=== PATIENT | female | born 1995 | race Hispanic/Latino ===

== ENCOUNTER 2019-04-12 09:37 | Emergency (ER) | payer OTHER ==
[~2019-04-12] VITALS: Ht 157.5 cm; Wt 81.6 kg
--- OUTSIDE RECORDS SUMMARY | 2019-04-12 09:40 | XMS REPORT | Continuity of Care Document ---
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 unit/0.1 mL intradermal injection solution Inject 0.1 mL by intradermal route. Active [facility] Allergies, Adverse Reactions, Alerts No Known Medication Allergies Immunizations Immunization Date Given Site Status Last Updated Comments Source influenza, injectable, quadrivalent, preservative free 06/09/2018 completed [facility] Results No Data Provided for This Section Pathology Reports No Data Provided for This Section Diagnostic Reports No Data Provided for This Section Consultation Notes No Data Provided for This Section Discharge Summaries No Data Provided for This Section History and Physicals No Data Provided for This Section Vital Signs Vital Sign Value Date Comments Source Diastolic (mm Hg) 70 06/09/2018 [facility] Height 63 06/09/2018 [facility] Systolic (mm Hg) 110 06/09/2018 [facility] Weight 184 06/09/2018 [facility] Encounters Location Location Details Encounter Type Encounter Number Reason For Visit Attending Provider ADM Date DC Date Status Source [place] - [facility] - [id number] GamboaC[facility] [address] [facility] [place] [address], Ph. [id number] Anna Marie Hernandez 06/09/2018 [facility] Procedures No Data Provided for This Section Assessment and Plan No Data Provided for This Section Plan of Care No Data Provided for This Section Social History No Data Provided for This Section Family History No Data Provided for This Section Advance Directives No Data Provided for This Section Functional Status No Data Provided for This Section
--- OUTSIDE RECORDS SUMMARY | 2019-04-12 09:41 | XMS REPORT | Encounter Summary ---
Author Organization Unknown Address [address] [place] [id number] Phone [phone] Reason for Visit Flu Immunization; Screening - TB Instructions 1. Influenza vaccine needed Flulaval Quad [id number] (PF) 60 mcg (15 mcg x 4)/0.5 mL IM syringe 2. Tuberculosis screening Tubersol 5 tub. unit/0.1 mL intradermal injection solution PPD (purified protein derivative), skin test Discussion Note Discussed with patient side effects , risks and complications of vaccine with VIS given. May take Tylenol for any discomfort. Report any redness, swelling at location site or fever RTC in 48 to 72 hours for reading. Do not manipulate injection site. Patient educational handouts: No information available. Plan of Care Reminders Provider Appointments None recorded. Lab PPD (Purified Protein Derivative), Skin Test 06/09/2018 [facility] Referral None recorded. Procedures None recorded. Surgeries None recorded. Imaging None recorded. Medications Name Start Date Tubersol 5 tub. unit/0.1 mL intradermal injection solution Inject 0.1 mL by intradermal route. Medications Administered Name Date Tubersol 5 tub. unit/0.1 mL intradermal injection solution Inject 0.1 mL by intradermal route. [id number] Vitals Height Weight BMI Blood Pressure 5 ft 3 in 184 lbs 32.6 kg/m2 110/70 mm[Hg] Lab Results None recorded. Allergies None recorded. Problems None recorded. Procedures None recorded. Vaccine List Vaccine Type influenza, injectable, quadrivalent, preservative free 06/09/20180.5 mL Social History None recorded. Past Encounters 06/09/2018 Influenza Vaccine Needed; Tuberculosis Screening Anna Marie Hernandez PA-C: [address] [place] [address], Ph. History of Present Illness Screening Request - TB Reported By: Patient Screening Request: BCG No prior BCG vaccination. PPD No past history of postive TB skin test (PPD), No previous severe local reaction to TB skin test (PPD). OTHER No prior vaccines within last month Immunization Reported By: Patient HPI: Immunization Request (normal) no symptoms. Immunization eligibility questions No vaccines in last month, No reaction to previous vaccines:, No Known Allergies Review of Systems Basic, Screening - TB Reported By: Patient Constitutional: Constitutional: no fever, No night sweats Eyes: Eyes: no eye complaints Cdta-[id number]-Rtxcx-Throat: Ears: no ear complaints. Nose: no nose/sinus problems. Mouth/Throat: no sore throat, no bleeding gums, no mouth complaints, no teeth problems Cardiovascular: Cardiovascular: no chest pain, no shortness of breath, no known heart murmur Respiratory: Respiratory: no cough, no wheezing, no shortness of breath Gastrointestinal: Gastrointestinal: no abdominal pain, no vomiting / diarrhea Genitourinary: Genitourinary: no urinary complaints, no discharge Musculoskeletal: Musculoskeletal: no muscle aches, no muscle weakness, no arthralgias/joint pain, no back pain Skin: Skin: no abnormal / changing mole, no jaundice, no rashes Neurologic: Neurologic: no loss of consciousness, no weakness, no numbness, no seizures, no dizziness, no headaches Symptoms during past year > 2 weeks, NOT associated with specific illness?: unexplained weight loss > 5 lbs No unexplained weight loss. coughing up blood (hemoptysis) No coughing up blood (hemoptysis). unusual fatigue No unusual fatigue. loss of appetite No loss of appetite. swollen neck glands No swollen neck glands Physical Exam Immunization, Screening Reported By: Patient General Appearance: General: well-developed, well-nourished, no acute distress Notes: Flu vaccine and PPD
[2019-04-12] MEDS ORDERED: SODIUM CHLORIDE 0.9% 1000ML 1,000 ML IV STA (09:50)
[2019-04-12] MEDS ORDERED: FAMOTIDINE 20 MG/2 ML VIAL IV ONE (10:00)
[2019-04-12] MEDS ORDERED: KETOROLAC TROMETHAMINE 30 MG/ML VIAL IV ONE (10:00)
[2019-04-12] MEDS ORDERED: ONDANSETRON HCL INJ 2MG/ML 2ML 2 MG/ML VIAL IV ONE (10:00)
[2019-04-12 10:16] LABS: BASOPHILS # (AUTO) 0.1 (0.0-0.1); BASOPHILS % 0.6 % (0.0-1.0); EOSINOPHILS # (AUTO) 0.2 (0.0-0.4); EOSINOPHILS % 2.6 % (0.0-6.0); HEMATOCRIT 39.1 % (34.2-44.1); HEMOGLOBIN 13.6 g/dL (12.0-16.0); LYMPHOCYTES # (AUTO) 2.4 (1.0-3.2); LYMPHOCYTES % 27.5 % (18.0-39.1); MEAN CORPUSCULAR HEMOGLOBIN 31.6 pg (28-32); MEAN CORPUSCULAR HGB CONC 34.8 g/dL (31-35); MEAN CORPUSCULAR VOLUME 90.7 fL (81-99); MONOCYTES # (AUTO) 0.4 (0.2-0.8); MONOCYTES % 4.9 % (4.4-11.3); NEUTROPHILS # (AUTO) 5.6 (2.1-6.9); NEUTROPHILS % 64.1 % (38.7-80.0); PLATELET COUNT 238 x10e3/uL (140-360); RED BLOOD COUNT 4.31 x10e6/uL (3.6-5.1); RED CELL DISTRIBUTION WIDTH 11.9 % (11.7-14.4)
[2019-04-12 10:17] LABS: BILIRUBIN,URINE NEGATIVE (NEGATIVE); CLARITY,URINE TURBID (CLEAR); COLOR,URINE YELLOW (YELLOW); KETONES,URINE NEGATIVE (NEGATIVE); LEUKOCYTE ESTERASE ,URINE NEGATIVE (NEGATIVE); NITRITE,URINE NEGATIVE (NEGATIVE); PROTEIN,URINE DIPSTICK TRACE (NEGATIVE); URINE UROBILINOGEN 0.2 mg/dL (0.2 - 1)
[2019-04-12 10:28] LABS: AMORPHOUS SEDIMENT,URINE MANY (FEW); MUCUS,URINE FEW (RARE); WBC,URINE (MAN) 0-5 /HPF (0-5)
[2019-04-12 10:31] LABS: PREGNANCY TEST, URINE NEGATIVE (NEGATIVE)
[2019-04-12 10:40] LABS: ALANINE AMINOTRANSFERASE 101 IU/L (0-55); ALBUMIN/GLOBULIN RATIO 1.1 (0.8-2.0); ALKALINE PHOSPHATASE 72 IU/L (40-150); AMYLASE 47 U/L (25-125); BLOOD UREA NITROGEN 11 mg/dL (7-26); BUN/CREATININE RATIO 15 (6-25); CALCIUM 8.9 mg/dL (8.4-10.2); CARBON DIOXIDE 21 mmol/L (22-29); CHLORIDE 106 mmol/L (98-107); CREATININE, SERUM 0.74 mg/dL (0.57-1.11); EST GLOMERULAR FILTRATION RATE > 60 ML/MIN (60-); GLUCOSE 118 mg/dL (74-118); LIPASE 10 U/L (8-78); SODIUM 139 mmol/L (136-145)
== END 2019-04-12 11:28 | disposition home or self-care (01) ==
LOC: ER 09:37
DX: R10.13 Epigastric pain (principal); R10.84 Generalized abdominal pain; R11.2 Nausea with vomiting, unspecified; R19.7 Diarrhea, unspecified; K52.9 Noninfective gastroenteritis and colitis, unspecified
CPT/HCPCS: 36415; 80053; 81001; 81025; 82150; 83690; 85025; 99284; J1885; J2405; J7030